=== PATIENT | male | born 1975 | race Two or more races ===

== ENCOUNTER → 2017-05-08 | Outpatient (CLI) | payer OTHER ==
[~2017-05-08] MED LIST: CHLORDIAZEPOXIDE; CLOMID50 MG; KLONOPIN1 MG/TAB PO; LEXAPRO5 MG PO; LITHIUM CARBON600 MG; ZYRTEC10 MG
== END | disposition home or self-care (01) ==
LOC: PPH VACUNA 15:08
DX: Z23 Encounter for immunization (principal)

== ENCOUNTER 2021-05-10 12:30 | Outpatient (CLI) | payer OTHER | END 2021-05-10 12:47 | disposition home or self-care (01) | LOC: SONOGRAMA 12:30 | PROVIDERS: ATTEND Internal Medicine Nephrology | DX: N40.1 Benign prostatic hyperplasia with lower urinary tract symptoms (principal); R80.9 Proteinuria, unspecified; N18.2 Chronic kidney disease, stage 2 (mild) ==

== ENCOUNTER 2022-06-10 14:20 | Emergency (ER) | payer OTHER ==
[~2022-06-10] VITALS: Ht 167.6 cm; Wt 72.6 kg
== END 2022-06-10 19:22 | disposition home or self-care (01) ==
LOC: ER 14:20
DX: R53.1 Weakness (principal)

== ENCOUNTER 2023-09-12 08:47 | Outpatient (CLI) | payer OTHER | END 2023-09-12 08:49 | disposition home or self-care (01) | LOC: NUCLEAR 08:47 | PROVIDERS: ATTEND Internal Medicine | DX: I73.9 Peripheral vascular disease, unspecified (principal) ==

== ENCOUNTER 2023-09-16 15:17 | Emergency (ER) | payer OTHER ==
[2023-09-16] MEDS ORDERED: LOSARTAN POTASS50 MG PO (15:43)
[2023-09-16] MEDS ORDERED: NEURONTIN300 MG PO (15:43)
[2023-09-16 17:14] LABS: HEMATOCRIT 43.3 % (39.0-48.0); HEMOGLOBIN 15.3 g/dL (13-16.00); MEAN CELL VOLUME 88.5 fL (80.0-100.00); MEAN CORPUSCULAR HEMOGLOBIN 31.2 pg (27.00-32.0); MEAN CORPUSCULAR HGB CONC 35.2 g/dl (32.0-36.0); PLATELET COUNT 200 K/uL (150-450); RED CELL DISTRIBUTION WIDTH 13.1 % (11.5-14.5)
[2023-09-16 17:25] LABS: ALBUMIN 4.2 gm/dL (3.4-5.0); BILIRUBIN TOTAL 0.77 mg/dL (0.3-1.2); CALCIUM 9.6 mg/dL (8.5-10.1); CREATININE SERUM 1.28 mg/dL (0.70-1.30); GFR 59.49; GLOBULINA 3.2 G/DL (2.4-3.5); POTASSIUM 4.38 mEq/L (3.5-5.1); TOTAL PROTEIN 7.4 gm/dL (6.4-8.2)
== END 2023-09-16 19:03 | disposition home or self-care (01) ==
LOC: ER 15:18
PROVIDERS: General Practice
DX: G62.9 Polyneuropathy, unspecified (principal); Z87.442 Personal history of urinary calculi; Z20.822 Contact with and (suspected) exposure to COVID-19; Z91.013 Allergy to seafood; Z88.2 Allergy status to sulfonamides; Z88.0 Allergy status to penicillin; T45.2X5A Adverse effect of vitamins, initial encounter

== ENCOUNTER 2023-09-20 08:53 | Emergency (ER) | payer OTHER ==
[~2023-09-20] VITALS: Ht 172.7 cm; Wt 77.1 kg
[~2023-09-20 08:53] MED LIST changes: +LOSARTAN POTASS50 MG PO; +NEURONTIN300 MG PO
[2023-09-20] MEDS ORDERED: OxyCODONE HCL/APAP UD (PERCOCET) PO ONE (09:30)
[2023-09-20] MEDS ORDERED: 0.9 % SODIUM CHLORIDE 500 ML IV ONE ×2 (09:30→12:15)
[2023-09-20 10:45] LABS: HEMATOCRIT 44.9 % (39.0-48.0); HEMOGLOBIN 15.6 g/dL (13-16.00); MEAN CELL VOLUME 88.8 fL (80.0-100.00); MEAN CORPUSCULAR HEMOGLOBIN 30.9 pg (27.00-32.0); MEAN CORPUSCULAR HGB CONC 34.8 g/dl (32.0-36.0); PLATELET COUNT 203 K/uL (150-450); RED BLOOD COUNT 5.06 M/uL (4.00-6.00); RED CELL DISTRIBUTION WIDTH 12.8 % (11.5-14.5)
[2023-09-20 11:20] LABS: ALBUMIN 4.2 gm/dL (3.4-5.0); CALCIUM 9.4 mg/dL (8.5-10.1); CREATININE SERUM 1.25 mg/dL (0.70-1.30); GFR 61.14; PHOSPHOROUS 3.2 mg/dL (2.5-4.9); POTASSIUM 3.67 mEq/L (3.5-5.1)
[2023-09-20 11:30] LABS: PH,URINE 7.5 (5.0-8.0); URINE APPEARANCE Clear; URINE BILIRRUBIN Negative (NEGATIVE); URINE BLOOD Negative; URINE COLOR Yellow; URINE GLUCOSE Negative (NEGATIVE); URINE LEUKOCYTE Negative; URINE NITRATE Negative; URINE PROTEIN Negative (NEGATIVE); URINE UROBILINOGEN 0.2 E.U./dl
[2023-09-20 11:32] LABS: URINE BACTERIA 0 uL (0.0-1933); URINE RBC 1.3 uL (0.0-20.8); URINE WBC 0 uL (0.0-23.2)
[2023-09-20] MEDS ORDERED: DIPHENHYDRAMINE HCL 50 MG/ML VIAL 1ML IV ONE (12:30)
== END 2023-09-20 14:41 | disposition home or self-care (01) ==
LOC: ER 08:53
PROVIDERS: General Practice
DX: R51.9 Headache, unspecified (principal); R42 Dizziness and giddiness; I10 Essential (primary) hypertension; Z88.8 Allergy status to other drugs, medicaments and biological substances; Z91.013 Allergy to seafood; N28.9 Disorder of kidney and ureter, unspecified

== ENCOUNTER → 2023-10-31 07:27 | Outpatient (CLI) | payer OTHER | END | disposition home or self-care (01) | LOC: NUCLEAR 07:00 | PROVIDERS: ATTEND Internal Medicine | DX: I20.9 Angina pectoris, unspecified (principal) ==

== ENCOUNTER → 2024-02-17 08:39 | Outpatient (CLI) | payer OTHER ==
[2024-02-17 09:32] LABS: HEMATOCRIT 45.9 % (39.0-48.0); HEMOGLOBIN 15.9 g/dL (13-16.00); MEAN CORPUSCULAR HEMOGLOBIN 30.5 pg (27.00-32.0); MEAN CORPUSCULAR HGB CONC 34.7 g/dl (32.0-36.0); PLATELET COUNT 170 K/uL (150-450); RED BLOOD COUNT 5.21 M/uL (4.00-6.00); RED CELL DISTRIBUTION WIDTH 12.9 % (11.5-14.5)
[2024-02-17 10:00] LABS: INR 1.03; PARTIAL THROMBOPLASTIN TIME 27.9 SECONDS (22.0-34.0); PROTHROMBIN TIME 11.2 SECONDS (9.0-11.5)
[2024-02-17 10:05] LABS: CREATININE URINE RANDOM < 13.00 MG/DL (30-125)
[2024-02-17 10:11] LABS: ALBUMIN 4.2 gm/dL (3.4-5.0); BILIRUBIN TOTAL 0.69 mg/dL (0.3-1.2); CALCIUM 9.1 mg/dL (8.5-10.1); CREATININE SERUM 1.24 mg/dL (0.70-1.30); GFR 61.71; GLOBULINA 3.1 G/DL (2.4-3.5); MAGNESIUM 2.1 mg/dL (1.8-2.4); PHOSPHOROUS 3.4 mg/dL (2.5-4.9); POTASSIUM 4.07 mEq/L (3.5-5.1); TOTAL PROTEIN 7.3 gm/dL (6.4-8.2); URIC ACID 4.1 mg/dL (3.5-8.5)
[2024-02-17 10:19] LABS: PROSTATIC SPECIFIC ANTIGEN 0.716 NG/ML (0.010-4.00)
[2024-02-19 10:04] LABS: FOLIC ACID 13.69 ng/ml (4.78-20); VITAMIN D3 25 HYDROXY 80.08 ng/ml (30-120)
== END | disposition home or self-care (01) ==
LOC: LAB 08:39
PROVIDERS: Internal Medicine; ATTEND Specialist
DX: E11.21 Type 2 diabetes mellitus with diabetic nephropathy (principal); D40.0 Neoplasm of uncertain behavior of prostate; D64.9 Anemia, unspecified; E11.65 Type 2 diabetes mellitus with hyperglycemia; D68.8 Other specified coagulation defects; E55.9 Vitamin D deficiency, unspecified; D51.0 Vitamin B12 deficiency anemia due to intrinsic factor deficiency

== ENCOUNTER 2024-02-21 15:59 | Outpatient (CLI) | payer OTHER | END 2024-02-21 16:03 | disposition home or self-care (01) | LOC: LAB 15:59 | PROVIDERS: ATTEND Internal Medicine Rheumatology | DX: M25.50 Pain in unspecified joint (principal) ==

== ENCOUNTER 2024-04-03 06:23 | Outpatient (CLI) | payer OTHER ==
[2024-04-03 07:38] LABS: HEMATOCRIT 44.7 % (39.0-48.0); HEMOGLOBIN 15.8 g/dL (13-16.00); MEAN CELL VOLUME 87.7 fL (80.0-100.00); MEAN CORPUSCULAR HGB CONC 35.3 g/dl (32.0-36.0); PLATELET COUNT 178 K/uL (150-450); RED CELL DISTRIBUTION WIDTH 13.2 % (11.5-14.5)
[2024-04-03 07:42] LABS: URINE APPEARANCE Cloudy; URINE BILIRRUBIN Negative (NEGATIVE); URINE BLOOD Negative; URINE COLOR Yellow; URINE GLUCOSE Negative (NEGATIVE); URINE KETONE Negative (NEGATIVE); URINE LEUKOCYTE Negative; URINE NITRATE Negative; URINE PROTEIN Negative (NEGATIVE); URINE UROBILINOGEN 0.2 E.U./dl
[2024-04-03 07:46] LABS: URINE RBC 4.7 uL (0.0-20.8)
[2024-04-03 08:06] LABS: URINE BACTERIA 2.4 uL (0.0-1933); URINE WBC 0.1 uL (0.0-23.2)
[2024-04-03 08:55] LABS: ALBUMIN 3.8 gm/dL (3.4-5.0); CALCIUM 9.1 mg/dL (8.5-10.1); CHOL HDL RATIO 2.9 (0-5.0); CREATININE SERUM 1.18 mg/dL (0.70-1.30); GFR 65.34; PHOSPHOROUS 3.3 mg/dL (2.5-4.9); POTASSIUM 4.3 mEq/L (3.5-5.1)
== END 2024-04-03 06:24 | disposition home or self-care (01) ==
LOC: LAB 06:23
DX: N18.2 Chronic kidney disease, stage 2 (mild) (principal); I12.9 Hypertensive chronic kidney disease with stage 1 through stage 4 chronic kidney disease, or unspecified chronic kidney disease; F41.1 Generalized anxiety disorder; D35.01 Benign neoplasm of right adrenal gland; N20.0 Calculus of kidney

== ENCOUNTER 2024-04-13 07:29 | Outpatient (CLI) | payer OTHER ==
[2024-04-13 09:30] LABS: ALBUMIN 4.3 gm/dL (3.4-5.0); BILIRUBIN TOTAL 0.9 mg/dL (0.3-1.2); CALCIUM 9.5 mg/dL (8.5-10.1); CREATININE SERUM 1.18 mg/dL (0.70-1.30); GFR 65.34; POTASSIUM 3.86 mEq/L (3.5-5.1); TOTAL PROTEIN 7.3 gm/dL (6.4-8.2); TSH 1.61 uIU/mL (0.358-3.74)
== END 2024-04-13 07:39 | disposition home or self-care (01) ==
LOC: LAB 07:29
DX: I11.9 Hypertensive heart disease without heart failure (principal); E66.09 Other obesity due to excess calories; D35.00 Benign neoplasm of unspecified adrenal gland; R73.01 Impaired fasting glucose

== ENCOUNTER → 2024-04-20 07:25 | Outpatient (CLI) | payer OTHER ==
[2024-04-20 08:33] LABS: URINE APPEARANCE Clear; URINE BILIRRUBIN Negative (NEGATIVE); URINE BLOOD Negative; URINE COLOR Yellow; URINE GLUCOSE Negative (NEGATIVE); URINE KETONE Negative (NEGATIVE); URINE LEUKOCYTE Negative; URINE NITRATE Negative; URINE PROTEIN Negative (NEGATIVE); URINE UROBILINOGEN 0.2 E.U./dl
[2024-04-20 08:36] LABS: URINE RBC 2.6 uL (0.0-20.8)
[2024-04-20 08:43] LABS: URINE BACTERIA 0 uL (0.0-1933); URINE EPITHELIAL CELLS 0.1 uL (0.0-38.8); URINE WBC 0.3 uL (0.0-23.2)
[2024-04-20 08:56] LABS: HEMATOCRIT 45.2 % (39.0-48.0); HEMOGLOBIN 15.8 g/dL (13-16.00); MEAN CELL VOLUME 88.2 fL (80.0-100.00); MEAN CORPUSCULAR HEMOGLOBIN 30.9 pg (27.00-32.0); PLATELET COUNT 176 K/uL (150-450); RED BLOOD COUNT 5.13 M/uL (4.00-6.00); RED CELL DISTRIBUTION WIDTH 13.4 % (11.5-14.5)
[2024-04-20 09:34] LABS: BILIRUBIN TOTAL 0.8 mg/dL (0.3-1.2); CALCIUM 9.1 mg/dL (8.5-10.1); CHOL HDL RATIO 2.9 (0-5.0); CREATININE SERUM 1.25 mg/dL (0.70-1.30); FREE TRIODOTIRONINE 2.45 pg/ml (2.18-3.98); GFR 61.14; GLOBULINA 2.8 G/DL (2.4-3.5); POTASSIUM 4.18 mEq/L (3.5-5.1); T4 FREE 0.82 NG/ML (0.76-1.46); TOTAL PROTEIN 6.8 gm/dL (6.4-8.2); TSH 1.9 uIU/mL (0.358-3.74)
== END | disposition home or self-care (01) ==
LOC: LAB 07:25
DX: D50.8 Other iron deficiency anemias (principal); N39.0 Urinary tract infection, site not specified; E11.42 Type 2 diabetes mellitus with diabetic polyneuropathy; E78.2 Mixed hyperlipidemia; E03.8 Other specified hypothyroidism; E27.2 Addisonian crisis; E05.00 Thyrotoxicosis with diffuse goiter without thyrotoxic crisis or storm

== ENCOUNTER 2024-06-29 07:49 | Outpatient (CLI) | payer OTHER ==
[2024-06-29 08:53] LABS: URINE APPEARANCE Clear; URINE BILIRRUBIN Negative (NEGATIVE); URINE BLOOD Negative; URINE COLOR Yellow; URINE GLUCOSE Negative (NEGATIVE); URINE KETONE Negative (NEGATIVE); URINE LEUKOCYTE Negative; URINE NITRATE Negative; URINE PROTEIN Negative (NEGATIVE); URINE UROBILINOGEN 0.2 E.U./dl
[2024-06-29 08:57] LABS: URINE RBC 4.4 uL (0.0-20.8)
[2024-06-29 09:21] LABS: URINE BACTERIA 0 uL (0.0-1933); URINE CAST 0.29 uL (0.0-1.40); URINE EPITHELIAL CELLS 0.1 uL (0.0-38.8); URINE WBC 0.6 uL (0.0-23.2)
[2024-06-29 09:23] LABS: ALBUMIN 4.1 gm/dL (3.4-5.0); BILIRUBIN TOTAL 0.84 mg/dL (0.3-1.2); CALCIUM 9.1 mg/dL (8.5-10.1); CHOL HDL RATIO 2.9 (0-5.0); CREATININE SERUM 1.22 mg/dL (0.70-1.30); GFR 62.62; GLOBULINA 2.9 G/DL (2.4-3.5); POTASSIUM 4.96 mEq/L (3.5-5.1); PROSTATIC SPECIFIC ANTIGEN 0.935 NG/ML (0.010-4.00)
== END 2024-06-29 07:50 | disposition home or self-care (01) ==
LOC: LAB 07:49
PROVIDERS: ATTEND Specialist
DX: E03.9 Hypothyroidism, unspecified (principal); E11.21 Type 2 diabetes mellitus with diabetic nephropathy; N39.9 Disorder of urinary system, unspecified; N40.1 Benign prostatic hyperplasia with lower urinary tract symptoms; E78.2 Mixed hyperlipidemia; E11.65 Type 2 diabetes mellitus with hyperglycemia; D64.9 Anemia, unspecified; J45.998 Other asthma; E55.9 Vitamin D deficiency, unspecified; M35.3 Polymyalgia rheumatica

== ENCOUNTER → 2024-08-10 09:29 | Outpatient (CLI) | payer OTHER ==
[2024-08-10 10:03] LABS: BASO % 1.2 % (0.1-1.2); EOS % 4.5 % (0.7-7.0); HEMATOCRIT 46.5 % (40.1-51.0); HEMOGLOBIN 16.2 g/dL (13.7-17.5); LYMPH # 1.26 (1.18-3.74); LYMPH % 18.9 % (19.3-53.1); MEAN CORPUSCULAR HEMOGLOBIN 29.9 pg (25.6-32.2); MONO % 7.5 % (4.7-12.5); NEUT # 4.51 (1.56-6.13); NEUT % 67.6 % (34.0-71.1); PLATELET COUNT 183 K/uL (163-369); RED BLOOD COUNT 5.41 M/uL (4.63-6.08); RED CELL DISTRIBUTION WIDTH 12.3 % (11.6-14.4); URINE APPEARANCE Clear; URINE BILIRRUBIN Negative (NEGATIVE); URINE BLOOD Negative; URINE COLOR Yellow; URINE GLUCOSE Negative (NEGATIVE); URINE KETONE Negative (NEGATIVE); URINE LEUKOCYTE Negative; URINE NITRATE Negative; URINE PROTEIN Negative (NEGATIVE); URINE UROBILINOGEN 0.2 E.U./dl
[2024-08-10 10:07] LABS: URINE RBC 4.7 uL (0.0-20.8)
[2024-08-10 10:15] LABS: ERYTHROCYTE SEDIMENTATION RATE < 1 mm/hr (0-20)
[2024-08-10 10:20] LABS: CREATININE URINE RANDOM 68.4 MG/DL (30-125)
[2024-08-10 10:21] LABS: URINE BACTERIA 0 uL (0.0-1933)
[2024-08-10 11:11] LABS: ALKALINE PHOSPHATASE 100 U/L (50-136); ALT/SGPT 21 U/L (12-78); ANION GAP 6 (10.0-20.0); AST/SGOT 16 U/L (15-37); BILIRUBIN TOTAL 1.02 mg/dL (0.3-1.2); BLOOD UREA NITROGEN 14 mg/dL (7-18); BUN CREA RATIO 12 (7.0-25.0); C-REACTIVE PROTEIN < 0.29 MG/DL (0.00-0.29); CALCIUM 8.4 mg/dL (8.5-10.1); CARBON DIOXIDE 32 mEq/L (21-32); CHLORIDE 106 mmol/L (98-107); CHOLESTEROL 139 mg/dL (0-200); CREATININE SERUM 1.19 mg/dL (0.70-1.30); FREE TRIODOTIRONINE 2.51 pg/ml (2.18-3.98); GFR 64.45; GLOBULINA 3.1 G/DL (2.4-3.5); GLUCOSE FASTING 75 mg/dL (65-100); HDL 46 mg/dl (40-60); LDL 78 mg/dl (0-130); OSMOLALITY SERUM 279 MOSM/KG (275-295); PROSTATIC SPECIFIC ANTIGEN 0.577 NG/ML (0.010-4.00); SODIUM 140 mmol/L (136-145); TOTAL PROTEIN 7.1 gm/dL (6.4-8.2); TRIGLYCERIDES 74 mg/dL (0-150); VLDL 14 (0-39)
[2024-08-11 13:24] LABS: VITAMIN D3 25 HYDROXY 50.19 ng/ml (30-120)
== END | disposition home or self-care (01) ==
LOC: LAB 09:29
PROVIDERS: ATTEND Specialist
DX: E03.9 Hypothyroidism, unspecified (principal); E11.21 Type 2 diabetes mellitus with diabetic nephropathy; N39.9 Disorder of urinary system, unspecified; N40.1 Benign prostatic hyperplasia with lower urinary tract symptoms; D40.0 Neoplasm of uncertain behavior of prostate; E78.2 Mixed hyperlipidemia; E11.65 Type 2 diabetes mellitus with hyperglycemia; Z12.11 Encounter for screening for malignant neoplasm of colon; D64.9 Anemia, unspecified; J45.998 Other asthma; E55.9 Vitamin D deficiency, unspecified; M35.3 Polymyalgia rheumatica; D51.0 Vitamin B12 deficiency anemia due to intrinsic factor deficiency

== ENCOUNTER 2024-10-02 08:08 | Outpatient (CLI) | payer OTHER ==
[2024-10-02 08:58] LABS: BASO % 1.1 % (0.1-1.2); EOS # 0.39 (0.04-0.54); EOS % 6.0 % (0.7-7.0); LYMPH # 1.35 (1.18-3.74); LYMPH % 20.9 % (19.3-53.1); MEAN PLATELET VOLUME 9.30 fl (9.4-12.4); MONO # 0.57 (0.24-0.82); MONO % 8.8 % (4.7-12.5); NEUT # 4.05 (1.56-6.13); NEUT % 62.9 % (34.0-71.1); RED CELL DISTRIBUTION WIDTH 12.3 % (11.6-14.4)
[2024-10-02 09:00] LABS: URINE APPEARANCE Clear; URINE BILIRRUBIN Negative (NEGATIVE); URINE BLOOD Negative; URINE COLOR Yellow; URINE GLUCOSE Negative (NEGATIVE); URINE KETONE Negative (NEGATIVE); URINE LEUKOCYTE Negative; URINE NITRATE Negative; URINE PROTEIN Negative (NEGATIVE); URINE UROBILINOGEN 0.2 E.U./dl
[2024-10-02 09:03] LABS: URINE RBC 4.9 uL (0.0-20.8); URINE WBC 1.8 uL (0.0-23.2)
[2024-10-02 09:05] LABS: URINE BACTERIA 0 uL (0.0-1933); URINE CAST 0.00 uL (0.0-1.40); URINE EPITHELIAL CELLS 0.3 uL (0.0-38.8)
[2024-10-02 09:16] LABS: CREATININE URINE RANDOM 98.2 MG/DL (30-125)
[2024-10-02 10:15] LABS: ALT/SGPT 22.0 U/L (12-78); AST/SGOT 15.0 U/L (15-37); BILIRUBIN TOTAL 0.67 mg/dL (0.3-1.2); BUN CREA RATIO 11.0 (7.0-25.0); CHOL HDL RATIO 3.0 (0-5.0); CREATININE SERUM 1.19 mg/dL (0.70-1.30); GFR 64.45; GLOBULINA 2.9 G/DL (2.4-3.5); GLUCOSE FASTING 84.0 mg/dL (65-100); HDL 48.0 mg/dl (40-60); LDL 83.0 mg/dl (0-130); OSMOLALITY SERUM 284.0 MOSM/KG (275-295); PROSTATIC SPECIFIC ANTIGEN 0.554 NG/ML (0.010-4.00); TSH 1.65 uIU/mL (0.358-3.74); VLDL 15.0 (0-39)
== END 2024-10-02 08:16 | disposition home or self-care (01) ==
LOC: LAB 08:08
DX: N18.2 Chronic kidney disease, stage 2 (mild) (principal); I12.9 Hypertensive chronic kidney disease with stage 1 through stage 4 chronic kidney disease, or unspecified chronic kidney disease; F41.1 Generalized anxiety disorder; D35.01 Benign neoplasm of right adrenal gland; N20.0 Calculus of kidney; N40.1 Benign prostatic hyperplasia with lower urinary tract symptoms

== ENCOUNTER 2024-11-20 08:27 | Outpatient (CLI) | payer OTHER ==
[2024-11-20 09:46] LABS: URINE APPEARANCE Clear; URINE BILIRRUBIN Negative (NEGATIVE); URINE BLOOD Trace; URINE COLOR Yellow; URINE GLUCOSE Negative (NEGATIVE); URINE KETONE Negative (NEGATIVE); URINE LEUKOCYTE Negative; URINE NITRATE Negative; URINE PROTEIN Negative (NEGATIVE); URINE UROBILINOGEN 0.2 E.U./dl
[2024-11-20 09:47] LABS: BASO % 0.8 % (0.1-1.2); EOS # 0.28 (0.04-0.54); EOS % 4.3 % (0.7-7.0); LYMPH # 1.13 (1.18-3.74); LYMPH % 17.3 % (19.3-53.1); MEAN PLATELET VOLUME 9.60 fl (9.4-12.4); MONO # 0.45 (0.24-0.82); MONO % 6.9 % (4.7-12.5); NEUT # 4.59 (1.56-6.13); NEUT % 70.4 % (34.0-71.1); RED CELL DISTRIBUTION WIDTH 12.1 % (11.6-14.4)
[2024-11-20 09:50] LABS: URINE RBC 14.0 uL (0.0-20.8)
[2024-11-20 09:52] LABS: URINE BACTERIA 0 uL (0.0-1933); URINE CAST 0.00 uL (0.0-1.40); URINE EPITHELIAL CELLS 0.7 uL (0.0-38.8); URINE WBC 0.9 uL (0.0-23.2)
[2024-11-20 09:58] LABS: CREATININE URINE RANDOM 107.0 MG/DL (30-125)
[2024-11-20 10:00] LABS: ERYTHROCYTE SEDIMENTATION RATE < 1 mm/hr (0-20)
[2024-11-20 11:01] LABS: ALT/SGPT 16 U/L (12-78); AST/SGOT 14 U/L (15-37); BILIRUBIN TOTAL 1.03 mg/dL (0.3-1.2); BUN CREA RATIO 11 (7.0-25.0); CHOL HDL RATIO 2.8 (0-5.0); CREATININE SERUM 1.24 mg/dL (0.70-1.30); FREE TRIODOTIRONINE 2.53 pg/ml (2.18-3.98); GFR 61.46; GLOBULINA 3.0 G/DL (2.4-3.5); GLUCOSE FASTING 77 mg/dL (65-100); HDL 46 mg/dl (40-60); LDL 65 mg/dl (0-130); OSMOLALITY SERUM 282 MOSM/KG (275-295); PROSTATIC SPECIFIC ANTIGEN 0.546 NG/ML (0.010-4.00); T4 FREE 0.89 NG/ML (0.76-1.46); TSH 1.390 uIU/mL (0.358-3.74); VLDL 15 (0-39)
[2024-11-20 12:59] LABS: VITAMIN D3 25 HYDROXY 41.22 ng/ml (30-120)
== END 2024-11-20 08:28 | disposition home or self-care (01) ==
LOC: LAB 08:27
DX: E03.9 Hypothyroidism, unspecified (principal); E11.21 Type 2 diabetes mellitus with diabetic nephropathy; N39.9 Disorder of urinary system, unspecified; N40.0 Benign prostatic hyperplasia without lower urinary tract symptoms; E78.2 Mixed hyperlipidemia; E11.65 Type 2 diabetes mellitus with hyperglycemia; D64.9 Anemia, unspecified; J45.998 Other asthma; E55.9 Vitamin D deficiency, unspecified; E11.9 Type 2 diabetes mellitus without complications; M35.3 Polymyalgia rheumatica

== ENCOUNTER 2025-02-12 09:54 | Emergency (ER) | payer OTHER ==
[~2025-02-12] VITALS: Ht 167.6 cm; Wt 72.6 kg
[2025-02-12] MEDS ORDERED: CIALIS5 MG PO (10:53)
[2025-02-12 11:54] LABS: BASO % 0.4 % (0.1-1.2); EOS # 0.01 (0.04-0.54); EOS % 0.1 % (0.7-7.0); LYMPH # 1.07 (1.18-3.74); LYMPH % 6.6 % (19.3-53.1); MEAN PLATELET VOLUME 9.80 fl (9.4-12.4); MONO # 1.00 (0.24-0.82); MONO % 6.2 % (4.7-12.5); NEUT # 13.89 (1.56-6.13); NEUT % 86.3 % (34.0-71.1); RED CELL DISTRIBUTION WIDTH 12.0 % (11.6-14.4)
[2025-02-12 12:29] LABS: BUN CREA RATIO 11.0 (7.0-25.0); CREATININE SERUM 1.22 mg/dL (0.70-1.30); GFR 62.62; GLUCOSE FASTING 100.0 mg/dL (65-100); OSMOLALITY SERUM 281.0 MOSM/KG (275-295)
== END 2025-02-12 14:07 | disposition home or self-care (01) ==
LOC: ER 09:54
PROVIDERS: Emergency Medicine
DX: H81.10 Benign paroxysmal vertigo, unspecified ear (principal); I10 Essential (primary) hypertension; Z91.018 Allergy to other foods